=== PATIENT | female | born 1935 | race Caucasian/White ===

== ENCOUNTER 2018-10-02 11:36 | Emergency (ER) | payer OTHER ==
[~2018-10-02] VITALS: Ht 165.1 cm; Wt 81.6 kg
[2018-10-02] MEDS ORDERED: ASPIRIN 81 MG CHEW TAB PO ONE (12:00)
[2018-10-02 12:13] LABS: BASOPHILS % 0.8 % (0.0-1.0); EOSINOPHILS # (AUTO) 0.2 (0.0-0.4); EOSINOPHILS % 3.4 % (0.0-6.0); HEMATOCRIT 41.6 % (34.2-44.1); HEMOGLOBIN 13.9 g/dL (12.0-16.0); LYMPHOCYTES # (AUTO) 1.1 (1.0-3.2); LYMPHOCYTES % 21.3 % (18.0-39.1); MEAN CORPUSCULAR HEMOGLOBIN 32.4 pg (28-32); MEAN CORPUSCULAR HGB CONC 33.4 g/dL (31-35); MONOCYTES # (AUTO) 0.5 (0.2-0.8); MONOCYTES % 8.5 % (4.4-11.3); NEUTROPHILS # (AUTO) 3.5 (2.1-6.9); NEUTROPHILS % 65.6 % (38.7-80.0); PLATELET COUNT 156 x10e3/uL (140-360); RED BLOOD COUNT 4.29 x10e6/uL (3.6-5.1); RED CELL DISTRIBUTION WIDTH 13.5 % (11.7-14.4)
[2018-10-02 12:38] LABS: ALANINE AMINOTRANSFERASE 20 IU/L (0-55); ALBUMIN 3.2 g/dL (3.5-5.0); ALBUMIN/GLOBULIN RATIO 1.1 (0.8-2.0); ALKALINE PHOSPHATASE 73 IU/L (40-150); BLOOD UREA NITROGEN 15 mg/dL (7-26); BUN/CREATININE RATIO 19 (6-25); CHLORIDE 106 mmol/L (98-107); CREATININE, SERUM 0.78 mg/dL (0.57-1.11); EST GLOMERULAR FILTRATION RATE > 60 ML/MIN (60-); POTASSIUM 3.7 mmol/L (3.5-5.1); SODIUM 139 mmol/L (136-145)
[2018-10-02 12:39] LABS: INR 0.96; PROTHROMBIN TIME 13.3 seconds (11.9-14.5)
[2018-10-02 12:40] LABS: PARTIAL THROMBOPLASTIN TIME 29.1 seconds (23.8-35.5)
[2018-10-02 12:47] LABS: ANION GAP 8.7 mmol/L (8-16); CALCIUM 8.9 mg/dL (8.4-10.2); CARBON DIOXIDE 28 mmol/L (22-29); CREATINE KINASE 104 IU/L (29-168); GLUCOSE 111 mg/dL (74-118)
--- NOTE | 2018-10-02 13:05 | Diagnostic Imaging Report ---
Exam: Head CT without contrast History: Left arm numbness Comparison studies: None Technique: Axial images were obtained from the skull base to the vertex. Coronal and sagittal images reconstructed from the axial data. Dose modulation, iterative reconstruction, and/or weight based adjustment of the mA/kV was utilized to reduce the radiation dose to as low as reasonably achievable. Radiation dose: Total DLP: 921 mGy*cm. Estimated effective dose: DLP x 0.015 Intravenous contrast: None Findings: Scalp: No abnormalities. Bones: No fractures, blastic or lytic lesions. Brain sulci: Varying degrees of mild to moderate sulcal enlargement. Ventricles: Mild compensatory dilatation. Extra-axial spaces: No masses, no fluid collection. Parenchyma: Ill-defined confluent hypodensities in the supratentorial white matter are nonspecific but most compatible with chronic microvascular ischemic changes. No masses, acute hemorrhage, acute or chronic vascular insults. Mild to moderate generalized cerebral volume loss with slightly greater disproportionate volume loss along the parieto-occipital fissures and cingulate sulci. Sellar/suprasellar region: No abnormalities. Craniocervical junction: Patent foramen magnum. No Chiari one malformation. Incidental findings: Atherosclerotic calcifications in the carotid siphons and in the intradural vertebral arteries. IMPRESSION: No acute intracranial abnormalities. Chronic findings: 1. Cerebral volume loss as described. 2. Moderate chronic microvascular ischemic changes. Signed by: Dr. Romaine Paz M.D. on 10/02/2018 1:02 PM
[2018-10-02 13:47] LABS: BILIRUBIN,URINE NEGATIVE (NEGATIVE); CLARITY,URINE CLEAR (CLEAR); COLOR,URINE YELLOW (YELLOW); KETONES,URINE NEGATIVE (NEGATIVE); LEUKOCYTE ESTERASE ,URINE SMALL (NEGATIVE); NITRITE,URINE NEGATIVE (NEGATIVE); PROTEIN,URINE DIPSTICK NEGATIVE (NEGATIVE); URINE UROBILINOGEN 0.2 mg/dL (0.2 - 1)
--- NOTE | 2018-10-02 13:52 | Diagnostic Imaging Report ---
EXAM: CHEST SINGLE (PORTABLE) DATE: 10/02/2018 11:58 AM INDICATION: Left arm numbness COMPARISON: Chest x-ray, 04/08/2010 FINDINGS: Lines and tubes: None Heart size normal. No focal pulmonary opacity, pleural effusion or pneumothorax. Upper abdomen unremarkable. There are degenerative changes at the shoulders, greater on the left, and progressive since last exam. There is soft tissue calcification inferior to the left shoulder suggesting possible calcific bursitis. IMPRESSION: No evidence for acute disease. Signed by: Dr. Charlie Waddell M.D. on 10/02/2018 1:48 PM
[2018-10-02 14:05] LABS: RBC,URINE 0-5 /HPF (0-5); WBC,URINE (MAN) 21-50 /HPF (0-5)
[2018-10-02 14:06] LABS: AMORPHOUS SEDIMENT,URINE RARE (FEW); EPITHELIAL CELLS,URINE RARE /LPF; TRANSITIONAL EPI CELLS,URINE FEW
[2018-10-02] MEDS ORDERED: MACRODANTIN100 MG PO (14:14)
[2018-10-02 14:26] VITALS: BP 135/71
== END 2018-10-02 14:33 | disposition home or self-care (01) ==
LOC: ER 11:36
DX: R20.2 Paresthesia of skin (principal); N30.90 Cystitis, unspecified without hematuria; I10 Essential (primary) hypertension; I51.9 Heart disease, unspecified; E78.5 Hyperlipidemia, unspecified; E07.9 Disorder of thyroid, unspecified
CPT/HCPCS: 36415; 70450; 71045; 80053; 81001; 82550; 82553; 84484; 85025; 85610; 85730; 93005; 99284

== ENCOUNTER 2019-01-25 13:27 | Emergency (ER) | payer OTHER ==
[~2019-01-25] VITALS: Ht 165.1 cm; Wt 81.6 kg
[~2019-01-25 13:27] MED LIST: MACRODANTIN100 MG PO
--- OUTSIDE RECORDS SUMMARY | 2019-01-25 13:31 | XMS REPORT ---
Author [facility] Address Unknown Phone Unavailable Care Team Providers Care Community [facility] Specialist Name Role Phone Harry CASTRO Unavailable Unavailable Problems This patient has no known problems. Allergies, Adverse Reactions, Alerts This patient has no known allergies or adverse reactions. Medications This patient has no known medications. Results Test Description Test Time Test Comments Text Results Atomic Results Result Comments CHEST SINGLE (PORTABLE) 2018-10-02 13:46:00 [place] [address] Patient Name: ELISSA GUERIN MR #: [id number] : 1935 Age/Sex: 83/F Req #: [id number] Adm Physician: Ordered by: CAROLANN CASTRO MD Report #: [id number] Location: ER Room/Bed: Procedure: [id number] DX/CHEST SINGLE (PORTABLE) Exam Date: 10/02/18 Exam Time: 919 REPORT STATUS: Signed EXAM: CHEST SINGLE (PORTABLE) DATE: 10/02/2018 11:58 AM INDICATION: Left arm numbness COMPARISON: Chest x- ray, 04/08/2010 FINDINGS: Lines and tubes: None Heart size normal. No focal pulmonary opacity, pleural effusion or pneumothorax. Upper abdomen unremarkable. There are degenerative changes at the shoulders, greater on the left, and progressive since last exam. There is soft tissue calcificati on inferior to the left shoulder suggesting possible calcific bursitis. IMPRESSION: No evidence for acute disease. Signed by: Dr. Viji Waggoner M.D. on 10/02/2018 1:48 PM Dictated By: VIJI WAGGONER MD 47 Transcribed By: ANDERSON on 10/02/181347 COPY TO: CAROLANN CASTRO MD CT BRAIN WO 2018-10-02 12:50:00 [place] [address] Patient Name: ELISSA GUERIN MR #: [id number] : 1935 Age/Sex: 83/F Req #: [id number] Adm Physician: Ordered by: CAROLANN CASTRO MD Report #: [id number] Location: ER Room/Bed: Procedure: [id number] CT/CT BRAIN WO Exam Date: Exam Time: REPORT STATUS: Signed Exam: Head CT without contrast History: Left arm numbness Comparison studies: None Technique: Axial images were obtained from the skull base to the vertex. Coronal and sagittal images reconstructed from the axial data. Dose modulation, iterative reconstruction, and/or weight based adjustment of the mA/kV was utilized to reduce the radiation dose to as low as reasonably achievable. Radiation dose: Total DLP: 921 mGy*cm. Estimated effect deborah dose: DLP x 0.015 Intravenous contrast: None Findings: Scalp: No abnormalities. Bones: No fractures, blastic or lytic lesions. Brain sulci: Varying degrees of mild to moderate sulcal enlargement. Ventricles: Mild compensatory dilatation. Extra-axial spaces: No masses, no fluid collection. Parenchyma: Ill-defined confluent hypodensities in the supratentorial white matter are nonspecific but most compatible with chronic microvascular ischemic changes. No masses, acute hemorrhage, acute or chronic vascular insults. Mild to moderate generalized cerebral volume loss with slightly greater disproportionate volume loss along the parieto-occipital fissures and cingulate sulci. Sellar/suprasellar region: No abnormalities. Craniocervical junction: Patent foramen magnum. No Chiari one malformation. Incidental findings: Atherosclerotic calcifications in the carotid siphons and in the intradural vertebral arteries. IMPRESSION: No acute intracranial abnormalities. Chronic findings: 1. Cerebral volume loss as described. 2. Moderate chronic microvascular ischemic changes. Signed by: Dr. Greta Paz M.D. on 10/02/2018 1:02 PM Dictated By: GRETA PAZ MD 1302 Transcribed By: ANDERSON on 10/02/18 1302 COPY TO: CAROLANN CASTRO MD
[2019-01-25 14:13] LABS: BILIRUBIN,URINE NEGATIVE (NEGATIVE); CLARITY,URINE CLEAR (CLEAR); COLOR,URINE YELLOW (YELLOW); KETONES,URINE NEGATIVE (NEGATIVE); LEUKOCYTE ESTERASE ,URINE TRACE (NEGATIVE); NITRITE,URINE NEGATIVE (NEGATIVE); PROTEIN,URINE DIPSTICK NEGATIVE (NEGATIVE); URINE UROBILINOGEN 0.2 mg/dL (0.2 - 1)
[2019-01-25 14:40] LABS: BACTERIA,URINE FEW /HPF; EPITHELIAL CELLS,URINE RARE /LPF; RBC,URINE 0-5 /HPF (0-5)
== END 2019-01-25 15:15 | disposition home or self-care (01) ==
LOC: ER 13:27
DX: N30.90 Cystitis, unspecified without hematuria (principal); E03.9 Hypothyroidism, unspecified
CPT/HCPCS: 81001; 87086; 99284